=== PATIENT | male | born 1955 | race Caucasian/White ===

== ENCOUNTER 2018-11-07 08:34 | Day surgery (SDC) | payer OTHER ==
[2018-11-03 13:45] VITALS: BMI 29.9
[2018-11-07] MEDS ORDERED: PROPOFOL 20 ML ONE ×2 (10:09)
[2018-11-07 10:39] VITALS: TEMP 98.1
[2018-11-07 11:09] VITALS: BP 147/90; PULSE 57
== END 2018-11-07 11:10 | disposition home or self-care (01) ==
LOC: FASU-ENDO 08:34
PROVIDERS: ATTEND Internal Medicine Gastroenterology
PROC: 0DJD8ZZ Inspection of Lower Intestinal Tract, Via Natural or Artificial Opening Endoscopic (ICD-10-PCS; principal; 2018-11-07 10:20)
DX: Z12.11 Encounter for screening for malignant neoplasm of colon (principal); Z80.0 Family history of malignant neoplasm of digestive organs; K57.30 Diverticulosis of large intestine without perforation or abscess without bleeding

== ENCOUNTER 2021-12-05 17:54 | Emergency (ER) | payer OTHER, BC ==
[2021-12-05 18:26] VITALS: BP 143/66; PULSE 62; TEMP 97.8; BMI 27.5
[2021-12-05] MEDS ORDERED: predniSONE 20 MG TABLET (UD) PO ONE (19:31)
[2021-12-05] MEDS ORDERED: diphenhydrAMINE HCL 50 MG CAPSULE PO ONE (19:31)
[2021-12-05] MEDS ORDERED: predniSONE 20 MG TABLET (UD) ONE (19:37)
== END 2021-12-05 19:45 | disposition home or self-care (01) ==
LOC: FER 17:54
DX: T78.40XA Allergy, unspecified, initial encounter (principal)
CPT/HCPCS: 99283-25

== ENCOUNTER 2023-05-24 19:36 | Emergency (ER) | payer OTHER, BC ==
[2023-05-24 19:58] VITALS: PULSE 68; RESP 16; TEMP 97.7; BMI 28.8
[2023-05-24] MEDS ORDERED: LIDOCAINE VISCOUS 2% ORAL/TOP 15 ML UNIT-DOSE CUP ONE (20:03)
[2023-05-24] MEDS ORDERED: LIDOCAINE HCL 2% JELLY 10 ML CARTRIDGE ONE (20:04)
[2023-05-24] MEDS ORDERED: CIPROFLOXACIN 500 MG TABLET (RESTRICTED TO ID) PO ONE (20:19)
[2023-05-24] MEDS ORDERED: LIDOCAINE HCL 2% JELLY 10 ML CARTRIDGE UR ONE (20:20)
[2023-05-24] MEDS ORDERED: CIPROFLOXACIN 250 MG TABLET (RESTRICTED TO ID) PO ONE (20:26)
[2023-05-24 20:46] VITALS: BP 161/64
== END 2023-05-24 21:11 | disposition home or self-care (01) ==
LOC: FER 19:36
PROC: 0T9B70Z Drainage of Bladder with Drainage Device, Via Natural or Artificial Opening (ICD-10-PCS; principal; 2023-05-24)
DX: R33.9 Retention of urine, unspecified (principal)
CPT/HCPCS: 99283-25

== ENCOUNTER 2023-06-17 21:00 | Emergency (ER) | payer OTHER, BC ==
[2023-06-17 21:17] VITALS: BP 187/84; PULSE 80; RESP 20; TEMP 98.4; BMI 27.6
== END 2023-06-17 22:21 | disposition home or self-care (01) ==
LOC: FER 21:00
PROC: 0T9B70Z Drainage of Bladder with Drainage Device, Via Natural or Artificial Opening (ICD-10-PCS; principal; 2023-06-17)
DX: R33.9 Retention of urine, unspecified (principal)
CPT/HCPCS: 81003; 81015; 87086; 99283-25